=== PATIENT | male | born 1985 | race Caucasian/White ===

== ENCOUNTER 2023-05-01 08:46 | Emergency (ER) | payer SELFPAY ==
[~2023-05-01] VITALS: Ht 167.6 cm; Wt 73.0 kg
[2023-05-01 08:50] VITALS: BP 138/99; PULSE 80; RESP 16; TEMP 97.6; O2SAT 96
[2023-05-01 09:24] LABS: APPEARANCE,URINE CLEAR (CLEAR); BILIRUBIN,URINE 1+ (NEGATIVE); BLOOD, URINE NEGATIVE (NEGATIVE); COLOR,URINE YELLOW (YELLOW); LEUKOCYTE ESTERASE ,URINE NEGATIVE (NEGATIVE); NITRITE, URINE NEGATIVE (NEGATIVE); PROTEIN,URINE 1+ (NEGATIVE); UGLUCOSE NEGATIVE (NEGATIVE); UROBILINOGEN,URINE 0.2 EU/dL (0.2 - 1)
[2023-05-01 09:52] LABS: BACTERIA,URINE 0-2 /HPF (None Seen); ICTOTEST NEGATIVE (NEGATIVE); RBC,URINE 0-5 /HPF (0-5); SQUAMOUS EPITHELIAL CELL,UR 0-3 (FEW) /LPF (0-3 (FEW)); WBC,URINE 0-5 /HPF (0-5)
[2023-05-01 11:29] VITALS: O2SAT 96
[2023-05-01] MEDS ORDERED: cefTRIAXone 500 MG in LIDOCAINE MPF 1% 1 ML IM ONE (12:45)
[2023-05-01] MEDS ORDERED: KETOROLAC 30 MG/ML VIAL IM ONE (12:45)
[2023-05-01] MEDS ORDERED: DOXY-690 PO (12:53)
[2023-05-01] MEDS ORDERED: IBUP-2213 PO (12:53)
[2023-05-01] MEDS ORDERED: LIDOCAINE MPF 1% 5 ML ONE (12:59)
[2023-05-01] MEDS ORDERED: cefTRIAXone 500 MG VIAL ONE (12:59)
[2023-05-01 13:29] VITALS: O2SAT 96
[2023-05-01 13:38] VITALS: BP 116/78; PULSE 68; RESP 14; TEMP 98.1; O2SAT 96
== END 2023-05-01 13:24 | disposition home or self-care (01) ==
LOC: MED 08:46
DX: N43.3 Hydrocele, unspecified (principal); N45.2 Orchitis; Z79.899 Other long term (current) drug therapy
CPT/HCPCS: 76870; 81001; 87491; 96372; 99285; J0696; J1885; J2001; Q0092